=== PATIENT | male | born 2000 | race Caucasian/White ===

== ENCOUNTER 2025-05-06 09:35 | Outpatient (CLI) | payer BC, SELFPAY ==
--- NOTE | 2025-05-06 09:48 | US_ITS ---
WS: [id number] ULTRASOUND SOFT TISSUES RIGHT inguinal canal. HISTORY: INGUINAL PAIN RIGHT COMPARISON: None available. TECHNIQUE: 2-D and color Doppler imaging is submitted. There is several very hypoechoic lymph nodes in the RIGHT inguinal region. These lymph nodes have increased vascularity. Loss of the normal fatty hilum with cortical thickening. Largest lymph node measures 2.5 x 0.8 x 1.8 cm. US/US soft tissue/extremity [id number] IMPRESSION: RIGHT inguinal lymphadenopathy. These may be reactive or neoplastic lymph nodes . The normal reniform shape is still present suggesting this could very well be reactive from infectious process. Consider follow-up CT abdomen and pelvis wit h IV contrast to evaluate for additional adenopathy. No inguinal hernia identified.
== END 2025-05-06 09:36 | disposition home or self-care (01) ==
LOC: RAD 09:37
PROVIDERS: Visit Provider Nurse Practitioner Family
DX: R10.30 Lower abdominal pain, unspecified (principal); R59.1 Generalized enlarged lymph nodes
CPT/HCPCS: 76882

== ENCOUNTER 2025-05-10 14:07 | Outpatient (CLI) | payer BC, SELFPAY ==
--- NOTE | 2025-05-10 14:17 | CT_ITS ---
WS: [id number] CT ABDOMEN AND PELVIS WITH CONTRAST HISTORY: INGUINAL LYMPHADENOPATHY TECHNIQUE: Imaging performed of the abdomen and pelvis with IV contrast. Single phase imaging of the abdomen. Coronal and sagittal reformats are submitted. All CT scans at [facility] use at least one of these dose optimization techniques: automated exposure control; mA and/or kV adjustment per patient size (includes targeted exams where dose is matched to clinical indication); or iterative reconstruction. IV CONTRAST: Omnipaque 350; 100 mL IV. Oral contrast: No DLP: 314.71 mGy.cm COMPARISON: Ultrasound 05/06/2025 Lower thorax: Lung bases are clear. Heart is normal size. No hiatal hernia. Liver/biliary system: Normal size with no intrahepatic dilatation. Gallbladder: Normal. No gallstones or wall thickening. No pericholecystic fluid. Pancreas: Normal size pancreas and pancreatic duct. No adjacent inflammation. Spleen: Normal size spleen. No mass or infarct. Adrenal glands: Normal. Right kidney: Normal. Left kidney: Normal. Circumferential LEFT renal vein around the aorta. Aorta: Normal. Lymphadenopathy: There are small retroperitoneal lymph nodes. These are shotty lymph nodes and not significantly enlarged. There is mild hazy attenuation surrounding the aorta below the level of the renal arteries. Small RIGHT iliac lymph nodes. Reidentified is a hyperemic lymph nodes in the RIGHT inguinal region similar to the ultrasound. Hyperemic RIGHT inguinal lymph node. Free fluid: None. GI tract: Unremarkable. Abdominal wall: Fat containing umbilical hernia. Pelvis: No free fluid in the pelvis. Bones: Unremarkable. CT/CT abdomen pelvis w con* [id number] IMPRESSION: 1. Slightly enlarged, hyperemic RIGHT inguinal lymph nodes. There are a few ad ditional small lymph nodes in the retroperitoneum. This may be reactive adenopa thy. Recommend close clinical follow-up after treatment for infectious process. If lymph nodes continue to progress surgical excision or biopsy of one of the larger lymph nodes may be necessary. 2. Spleen is normal size. 3. No ascites.
[2025-05-10] MEDS: iohexol 350 mg/mL 500 mL Btl (per mL) IV (14:30)
== END 2025-05-10 14:08 | disposition home or self-care (01) ==
PROVIDERS: Visit Provider Nurse Practitioner Family
DX: R59.0 Localized enlarged lymph nodes (principal); K42.9 Umbilical hernia without obstruction or gangrene
CPT/HCPCS: 74177